=== PATIENT | male | born 1955 | race African-American/Black ===

== ENCOUNTER 2020-08-07 07:10 | Day surgery (SDC) | payer MEDICARE, OTHER ==
[~2020-08-07] VITALS: Ht 182.9 cm; Wt 90.7 kg
[2020-08-07 08:20] LABS: ANION GAP 13.3 mmol/L (8-16); CALCIUM 9.3 mg/dL (8.5-10.1); CARBON DIOXIDE 29.3 mmol/L (21.0-32.0); CREATININE - SERUM 10.3 mg/dL (0.6-1.3); POTASSIUM - SERUM 4.6 mmol/L (3.5-5.1)
[2020-08-07] MEDS ORDERED: TOPROL XL25 MG PO (08:52)
[2020-08-07 08:53] LABS: INR 1.33 (0.85-1.17); PROTIME 15.3 SECONDS (11.6-15.0)
[2020-08-07] MEDS ORDERED: GLUCOTROL 5 MG T5 MG PO (08:53)
[2020-08-07] MEDS ORDERED: LONITEN10 MG PO (08:54)
[2020-08-07] MEDS ORDERED: LIPITOR20 MG PO (08:54)
[2020-08-07] MEDS ORDERED: BAYER CHEWABLE81 MG PO (08:54)
[2020-08-07 09:03] LABS: BASOPHILS 0.9 % (0-2); EOSINOPHILS 11.3 % (0-7); HEMATOCRIT 37.6 % (42.0-54.0); HEMOGLOBIN 11.7 g/dL (13.5-17.5); IMMATURE GRANULOCYTES 0.2 % (0-5); LYMPHOCYTE ABS# 1.49 10x3/uL (1.32-3.57); LYMPHOCYTES 28.2 % (15-50); MCH 28.5 pg (26.0-34.0); MCHC 31.1 g/dL (31.0-37.0); MCV 91.7 fL (80.0-100.0); MEAN PLATELET VOLUME 9.8 fL (7.4-10.4); MONOCYTES 8.3 % (2-11); NEUTROPHILS 51.1 % (40-80); PLATELET COUNT 175 10x3/uL (130-400); RDW 15.7 % (11.5-14.5); WBC 5.3 10x3/uL (4.8-10.8)
[2020-08-07 09:42] VITALS: BP 119/59; Ht 182.9 cm; Wt 90.7 kg
[2020-08-07] MEDS ORDERED: HYDROCODON-ACE1 EAC7 PO (15:00)
--- NOTE | 2020-08-07 15:45 | NUR ---
3397 PT'S FRIEND NOTIFIED OF PT. RETURNING TO ROOM AND APPROXIMATE DC TIME.
--- NOTE | 2020-08-07 16:23 | NUR ---
1623 O2 DC'D. 94% SAT ON ROOM AIR.
--- NOTE | 2020-08-07 16:35 | NUR ---
1625 O2 CONTINUES TO REMAIN AT 94% SAT ON ROOM AIR, SAT PT UP ON SIDE OF BED, DENIES PROBLEMS, IV DC'D WITH CATH INTACT.
--- NOTE | 2020-08-07 16:49 | NUR ---
1645 PT. SLOW WITH DRESSING, STATES JUST FEELS TIRED. LAYING BACK DOWN.
--- NOTE | 2020-08-10 21:37 | OP ---
PATIENT NAME: MAXIMILIANO GATICA MEDICAL RECORD: [id number] :54 LOCATION:[facility] ADMISSION DATE: SURGEON: KAI SANCHEZ MD DATE OF OPERATION: 08/07/2020 REFERRING PHYSICIAN: Dr. Jon Meraz of [place]. 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 OPERATION PERFORMED: Fistulogram and balloon angioplasty of in-stent stenosis in the cephalic arch with an 8-mm diameter angioplasty balloon. Also, balloon angioplasty of right subclavian vein and right brachiocephalic vein stenoses with a 12-mm Bard Conquest high pressure angioplasty balloon. Also, then, the patient had an open segmental resection of the section of cephalic vein between the arterial anastomosis and the upper extent of the antecubital space that resected fully the pseudoaneurysm and replacement with a 6 mm diameter Propaten Intering 6 mm standard wall PTFE graft. SURGEON: Kai Sanchez MD ANESTHESIA: General endotracheal per CHAR FILTER OPERATOR. PREOPERATIVE NOTE: Mr. Maximiliano Gatica is a 65-year-old -[place] male from [facility], who is on chronic hemodialysis and dialyzes in [place] at the [facility] [place]. His c.o.d. biller is Dr. Jon Meraz of [place]. Dr. Meraz has referred Mr. Gatica to me for consideration for new dialysis access possibly including a HeRO dialysis graft. The patient has a history of prior cephalic arch stenosis and stenting and sometime in the recent future has developed a symptomatic enlarging aneurysm in the right antecubital space. He was brought to the operating room at this time to perform a fistulogram and interventions as possible, hopefully with repair of the aneurysmal segment of fistula. DESCRIPTION OF PROCEDURE: Under general anesthesia, the patient was placed in supine position, prepped and draped in a sterile manner. A fistulogram was then performed using a micropuncture needle and catheter inserted into the proximal third of the cephalic vein in the arm. Contrast injection with digital subtraction demonstrated a severe approximately 80% recurrent in-stent long stenosis in the cephalic arch and approximately 60% stenosis of the proximal right subclavian vein and an approximate 80% stenosis of the proximal right innominate or brachiocephalic vein with backfilling of collateral veins and backfilling of the internal jugular vein. 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 I placed a 6-Pakistani introducer sheath and advanced a guidewire. An angled glide catheter and was able to cross the areas of stenosis in the stent and in the proximal subclavian vein and also with a OPERATIVE REPORT [id number] MAXIMILIANO GATICA little more difficulty cross the stenosis into the superior vena cava. The guidewire and subsequently catheter were parked in the left brachiocephalic vein and contrast injected with digital subtraction imaging. This revealed that there was no stenosis of the superior vena cava or the left brachiocephalic vein. There was a severe stenosis of the right brachiocephalic vein just above the confluence and also again seen was stenosis of the subclavian vein. I did a wire exchange and placed an Amplatz wire in the inferior vena cava and then performed balloon angioplasty of these 3 areas of stenosis, first using an 8-mm angioplasty balloon with prolonged inflation and after which contrast injection revealed a very satisfactory result in the stent in the cephalic arch, but there was very little response or total recoil of the venous stenoses. These venous stenoses were then subsequently dilated again with a 12 mm diameter Conquest high pressure balloon, inflated to 16 atmospheres and held fully inflated for 60 seconds. Subsequently, repeated angiography revealed free flow of contrast into the superior vena cava and no residual significant stenosis in the right brachiocephalic or right subclavian veins. I did note that the stent in the right cephalic arch protrudes into the middle of the subclavian vein. There was flow and some backfilling into the axillary vein, but there was really not good visualization most of the axillary vein. I then made a long S-shaped incision over the fistula and the pseudoaneurysm in the antecubital space and dissected it free of surrounding structures. I obtained proximal and distal control of the brachial artery above and below the anastomosis and controlled it with Silastic loops and when needed. Atraumatic vascular clamps. The fistula itself was dissected from the surrounding tissues and also controlled with Silastic loops. The patient's aneurysm was dissected from the surrounding tissues and was about 3 cm in diameter and palpably it contained as well as we had seen on ultrasound, a large amount of thrombus. The patient was heparinized with 5000 units of heparin and the fistula subsequently clamped proximal and distal to the pseudoaneurysm and the pseudo aneurysmal segment was then resected, it was sent to pathology. The ends of the remaining fistula were bevelled and I placed an interposition graft using 6-mm diameter standard wall Propaten PTFE placing an Intering prosthesis to help avoid kinking in this location in the antecubital area. The anastomoses at both ends were done end-to-end and were done with continuous running 6-0 Prolene and were sealed with BioGlue. The suture lines were hemostatic upon completion and release of the occluding clamps and loops and there was excellent Doppler pulsatile flow in the brachial artery distal to the brachial artery to fistula anastomosis and also in the radial artery at the wrist. There was good continuous hyperemic type flow in the proximal brachial artery and of course in the fistula itself. The patient's heparin was reversed with 50 mg of protamine, but continued to ooze and bleed from a subcutaneous veins throughout the procedure. The wound was irrigated with saline and infiltrated with 0.25% Marcaine. I did not use a drain, but closed the wound with interrupted inverted 3-0 Vicryl and then a running intracuticular 4-0 Stratafix and further closed and sealed it with Dermabond glue, Maxorb, Tegaderm, Cavilon skin prep. I then placed a pressure dressing over this area using 4 x 4 padding, Kerlix 4-inch roll and 4-inch Coban elastic adhesive tape. This dressing I applied myself and I thought was not overly tight. The patient's bleeding appeared to be well controlled at that point. The patient was then awakened and in stable condition taken to the recovery room. The patient has several problems or constellation of problems with several different potential solutions. At this point in time, I think no further OPERATIVE REPORT [id number] MAXIMILIANO GATICA surgery is indicated, so long as his access remains patent and functional. I did make no attempt to resect the 2 large cannulation aneurysms in the mid humeral upper arm and I think he can continue to dialyze with these present, so long as his care was taken not to cannulate directly over the center of these aneurysms where the skin is very thin. In-stent cephalic arch recurrent stenosis will undoubtedly come back and if it is allowed to progress, will cause failure of this access that may possibly be avoided or treated by a transposition of the proximal cephalic vein down onto the basilic or axillary vein if indeed the central vein stenoses are not causing persistent problems with venous hypertension. I recommend that the patient have a followup fistulogram done at [facility] in 6 to 8 weeks and at that time, dilatation of stenoses as needed. I would recommend avoiding placing any further stents in the cephalic vein segment, which would potentially be used in a transposition operation. Certainly, I would redilate any recurring in-stent stenoses in order to keep the fistula working until a transposition could be done. I also would like at that time at [facility] for him to have an ultrasound-guided right axillary vein or basilic vein cannulation and a venogram performed there to determine if there are any areas of stenosis in the proximal basilic vein or axillary vein or subclavian, which were not appreciated on today's studies. If the patient needs further intervention for the brachiocephalic or subclavian vein stenoses, I would recommend referral to Dr. Magaña or Kate at [facility] for stenting of the central vein stenosis. I believe if that were successful it would then make it feasible to go ahead with transposition of the cephalic vein on to the axillary vein and avoid a need for HeRO graft at this point. I will send a copy of this note to tK and to the [facility] dialysis unit and also to [facility] here in [place]. It should be reviewed by the interventional c.o.d. biller at that time Mr. Gatica returns for his followup fistulogram. At least today, the patient I do not think requires a followup office visit, but if and when he is having more problems in the future, of course, we will want to see him back and we will want to see him before so that I could schedule him for a transposition operation. If a stent is placed in the right innominate vein, it needs to be 14 mm or greater in diameter to allow for potential insertion of a HeRO venous outflow device and if at all possible, avoid jailing the internal jugular vein confluence with the subclavian. Blood loss during the operation today was on the order of 100-150 cc and it was unreplaced, but the patient was given 2 units of fresh frozen plasma intraoperatively and 20 mcg of DDAVP. All sponges, instruments and needles were accounted for. No drain was used and the surgical specimen consisted of the resected fistula segment was pseudoaneurysm. The patient will be allowed to go home today and go to dialysis tomorrow. Obviously, his pressure dressing will need to be removed tomorrow and hopefully, he will not need to have any further pressure dressing applied. He will need to have a return appointment to my office for followup on the fistula and the interposition graft and I will make that appointment for him in my office next week. He will continue all of the same medications, diet, routine dialysis schedule. TRANSINT:[id number] Voice Confirmation ID: [id number] DOCUMENT ID: [id number] cc: Irina ARTHUR and Interventional Radiologist Dr. Jon Meraz OPERATIVE REPORT [id number] [facility] Pierce MD at 2137 CC: [id number] DICTATION DATE: 08/08/20 1146 HEALTH SYSTEMS ANALYST: 08/08/202221 [facility] 08/07/20 [facility] [address] [place] [address]
== END 2020-08-07 17:14 | disposition home or self-care (01) ==
LOC: D.OPS 07:10
PROVIDERS: ATTEND Surgery
DX: N18.6 End stage renal disease (principal); Z99.2 Dependence on renal dialysis; T82.510A Breakdown (mechanical) of surgically created arteriovenous fistula, initial encounter; T82.858A Stenosis of other vascular prosthetic devices, implants and grafts, initial encounter; T82.848A Pain due to vascular prosthetic devices, implants and grafts, initial encounter

== ENCOUNTER 2020-09-11 06:02 | Observation (INO) | payer MEDICARE, OTHER ==
[~2020-09-11] VITALS: Ht 182.9 cm; Wt 83.0 kg
[~2020-09-11 06:02] MED LIST: BAYER CHEWABLE81 MG PO; GLUCOTROL 5 MG T5 MG PO; HYDROCODON-ACE1 EAC7 PO; LIPITOR20 MG PO; LONITEN10 MG PO; TOPROL XL25 MG PO
[2020-09-11 06:32] LABS: INR 1.27 (0.85-1.17); PROTIME 14.7 SECONDS (11.6-15.0)
[2020-09-11 06:34] LABS: ANION GAP 13.5 mmol/L (8-16); CALCIUM 9.2 mg/dL (8.5-10.1); CARBON DIOXIDE 28.6 mmol/L (21.0-32.0); CREATININE - SERUM 8.8 mg/dL (0.6-1.3); POTASSIUM - SERUM 4.1 mmol/L (3.5-5.1)
[2020-09-11 06:41] LABS: BASOPHILS 1.1 % (0-2); HEMATOCRIT 35.2 % (42.0-54.0); HEMOGLOBIN 10.9 g/dL (13.5-17.5); IMMATURE GRANULOCYTES 0.2 % (0-5); LYMPHOCYTE ABS# 1.67 10x3/uL (1.32-3.57); LYMPHOCYTES 30.8 % (15-50); MCH 28.2 pg (26.0-34.0); MEAN PLATELET VOLUME 9.4 fL (7.4-10.4); MONOCYTES 12.7 % (2-11); NEUTROPHIL ABS# 2.35 10x3/uL (1.78-5.38); NEUTROPHILS 43.2 % (40-80); PLATELET COUNT 177 10x3/uL (130-400); RBC 3.87 10x6/uL (4.20-6.10); RDW 15.8 % (11.5-14.5); WBC 5.4 10x3/uL (4.8-10.8)
--- NOTE | 2020-09-11 08:13 | NUR ---
0807 EKG SHOWS AFIB. PT STATES HE HAD SOMETHING THAT WASN'T WORKING RIGHT WITH HIS HEART ON 08/07/2020 HOSPITAL VISIT. 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 DR. ARCINIEGA NOTIFIED OF EKG SHOWING AFIB WITH RATE OF 88. STATES SURGERY CAN BE DONE WITH THAT RATE. DR. SANCHEZ CALLED & INFORMED OF AFIB/RATE [address] ARCINIEGA SAID SURGERY COULD BE DONE. DR. SANCHEZ STATES HE WANTS TO CONTINUE WITH TODAY'S SURGERY. PT STATES HE WANTS TO HAVE THE PROCEDURE DONE. Alysia JOHNSON R.N.
[2020-09-11 09:04] VITALS: BP 116/61; BMI 24.8
[2020-09-11 14:00] VITALS: BP 126/62
--- NOTE | 2020-09-11 14:00 | NUR ---
received pt to 2133 from recovery room, pt alert and oriented, denies pain at this time, dressing noted to right arm with umer drain in place, 2lnc, piv to left hand 20g, flushes with ease, no needs voiced at this time, call light in reach, will monitor
--- NOTE | 2020-09-11 14:20 | NUR ---
spoke with luma gresham about renal consult
[2020-09-11 14:46] LABS: BASOPHILS 0.2 % (0-2); HEMATOCRIT 31.6 % (42.0-54.0); HEMOGLOBIN 9.7 g/dL (13.5-17.5); IMMATURE GRANULOCYTES 0.2 % (0-5); LYMPHOCYTE ABS# 0.93 10x3/uL (1.32-3.57); LYMPHOCYTES 17.4 % (15-50); MCHC 30.7 g/dL (31.0-37.0); MCV 91.1 fL (80.0-100.0); MEAN PLATELET VOLUME 9.5 fL (7.4-10.4); MONOCYTES 13.3 % (2-11); NEUTROPHIL ABS# 3.53 10x3/uL (1.78-5.38); NEUTROPHILS 65.9 % (40-80); PLATELET COUNT 142 10x3/uL (130-400); RBC 3.47 10x6/uL (4.20-6.10); RDW 15.6 % (11.5-14.5); WBC 5.4 10x3/uL (4.8-10.8)
[2020-09-11 14:57] VITALS: BP 126/62; BMI 24.9
--- NOTE | 2020-09-11 18:50 | NUR ---
REPORT RECEIVED PT LYING IN BED APPEARS ASLEEP NO DISTRESS NOTED. WILL CONTIUE TO MONITOR
--- NOTE | 2020-09-11 19:05 | NUR ---
spoke to pt catia Gatica who called to check on pt, pt ok'd nurse speaking to niece. pt catia phone number [phone] if anyone needs to contact pt family
[2020-09-11 20:00] VITALS: BP 117/59
[2020-09-12] VITALS: BP 116/65
[2020-09-12 04:00] VITALS: BP 105/53
--- NOTE | 2020-09-12 05:41 | NUR ---
umer drain emptied 10 cc sangiounous drainage, radial pulse palpated, dressing cdi RUE, sling in place
[2020-09-12 08:08] VITALS: BP 124/67
--- NOTE | 2020-09-12 10:07 | OP ---
PATIENT NAME: NICOLE LOCKE MEDICAL RECORD: [id number] :54 LOCATION:D. D.2134 ADMISSION DATE:09/11/20 SURGEON: KAI SANCHEZ MD DATE OF OPERATION: 09/11/2020 REFERRING PHYSICIAN: Dr. Jon Meraz of [place]. 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 A couple of months ago, I operated him and replaced the aneurysmal segment of the fistula in the antecubital space, which was painful and bothering him, replaced that with a PTFE graft, but I did not bypass or treat the entire aneurysmal fistula as I wanted to see the results of additional studies. The patient was returned to the operating room today with plans to implant a HeRO graft on the right, taking origin from the brachial artery actually from the graft, which I implanted recently and I will insert the HeRO outflow device through the right internal jugular vein. DESCRIPTION OF OPERATION: With the patient in supine position, prepped, and draped in a sterile manner, the right internal jugular vein was identified with a duplex ultrasound, the vein was fully compressible and of normal caliber. I made a small incision at the base of the neck there over the vein and using micropuncture technique and continuous ultrasound imaging, I inserted a needle and then an 0.018 wire. Under fluoroscopy, a catheter guidewire exchange was performed and a Glidewire inserted and advanced into the superior vena cava and right atrium. A 7-Mosotho introducer was then inserted and then additionally an angled glide catheter was passed over the Glidewire and I was able to manipulate this combination of catheter and wire through the right atrium and into the inferior vena cava. I then inserted an Amplatz wire through the Oxford catheter and parked the Amplatz in the iliac vein. I then injected contrast through the 7-Mosotho introducer and demonstrated an approximate 70% stenosis of the right brachiocephalic vein. This is a recurrent stenosis. I inserted a 9 mm diameter x 40 cm angioplasty balloon and dilated the stenosis. Subsequent contrast injections revealed no evidence of extravasation and about a 20% persistent stenosis and I believe the lesion is quite elastic. I then dilated the tract over the wire to the central veins and inserted the HeRO venous access device over 9 mm balloon and Amplatz wire at the end of the outflow device in the right atrium and then removed the hardware. The outflow tract was aspirated and flushed with heparinized saline and clamped and capped. All of this had been done under fluoroscopy. I then reopened the incision into and just above the antecubital space and exposed the PTFE graft that I had placed last time and clamped it distally towards the arterial anastomosis and ligated it proximally towards the aneurysmal fistula then transected it and beveled it and took an Acuseal early access graft and bevelled one end and then the anastomosis was performed between the Acuseal graft and the Propaten PTFE graft end-to-end with running 6-0 Prolene. When I was completed, the suture line was sealed with BioGlue and the graft and artery then again flushed with heparinized saline. A counter incision was made at the mid humeral level posteriorly and an incision was made over the deltopectoral groove. I placed the Acuseal graft in a tunnel, which passed rather widely around the aneurysmal fistula and then came back to the OPERATIVE REPORT [id number] NICOLE LOCKE deltopectoral groove. It was again flushed with heparinized saline and then pressurized and there was an excellent pulse throughout before it was once again clamped. The graft was shortened and dilated and then attached to a HeRO connector. The outflow device was pulled through a subcutaneous tunnel from the cervical incision to the deltopectoral groove incision. It was shortened and also connected to the connector, and when that was done, clamps were removed and excellent flow began immediately in the new HeRO, flow between the right brachial artery and the right atrium. Repeat fluoroscopy revealed very satisfactory positioning without any complication seen. The wounds were then irrigated with saline and closed with interrupted inverted 3-0 Vicryl and running intracuticular 4-0 Stratafix and Dermabond glue. I then made an incision over the aneurysmal fistula and excised as 2 ellipses of skin over the larger aneurysmal areas and dissected skin flaps and was able to fully mobilize the old fistula distally. I removed the end of the graft with the LigaSure and mobilized this all the way up to near the axilla where it was ligated with a 2-0 Prolene. The fistula was removed and it was sent to pathology for confirmation. The wound was irrigated with saline and then infiltrated and irrigated with 1% lidocaine with epinephrine. The wound was closed over a 7 mm flat Arun drain closing it with interrupted inverted 3-0 Vicryl in a running intracuticular 4-0 Stratafix. The drain was sutured to the skin with 3-0 Vicryl and attached to suction. The incision was sealed with Dermabond glue and all the incisions were then dressed with Maxorb, AG, Tegaderm, Cavilon skin prep and additionally a 4 x 4 and Kerlix gauze roll and Coban pressure dressing was placed on the arm and the drain attached to suction. At this point, the patient was awakened from his anesthetic and taken to the recovery room. Blood loss during the operation, I estimated at 250, little less perhaps, none was replaced. Sponges, instruments, and needles were accounted for. One drain was used as I described and the surgical specimen consisted of the excised aneurysmal AV fistula. PLAN: The patient is to remain in the hospital overnight tonight. He will be seen and followed by nephrology. He will be scheduled for dialysis tomorrow. We will instruct the dialysis nurses to be sure to follow Acuseal protocol, which also will need to be followed for the next 2 weeks at his home dialysis unit in [place]. Basically, the graft is to be accessed with nothing larger than a 17-gauge needle. The nurse is to wear a mask as well as sterile gloves when accessing the graft, flow should not exceed 450 cc per minute. If the patient is comfortable, and after he is dialyzed successfully tomorrow and there is no reason to keep him longer, he may be able to go home and continue his dialysis scheduled in [place] with his same medications, diet, etc. TRANSINT:[id number] Voice Confirmation ID: [id number] DOCUMENT ID: [id number] cc: Dr. Jon Meraz OPERATIVE REPORT [id number] NICOLE LOCKE JAMES MD at 1007 CC: [id number] DICTATION DATE: 09/11/20 1519 ORNAMENTAL IRON ERECTOR: 09/11/20 2318 ADM IN [place] [id number] [place] [address]
--- NOTE | 2020-09-12 13:07 | NUR ---
PATIENT LYING SEMI FOWLERS AAOX4, RESP EVEN AND NON LABORED, NO S/S OF DISTRESS, MEDICATIONS ADMINISTERED WITH INFORMATION RESOURCES DIRECTOR, NO FURTHER NEEDS AT THIS TIME, CLIR, BLP
[2020-09-12 13:30] VITALS: Ht 182.9 cm; Wt 83.0 kg
--- NOTE | 2020-09-12 20:39 | NUR ---
DIALYSIS TREATMENT TODAY BEFORE DISCHARGE. 1 LITER REMOVED VIA NEW GRAFT. TOLERATED WELL. REPORT GIVEN TO HILARIO ANGUIANO RN.
== END 2020-09-12 14:59 | disposition home or self-care (01) ==
LOC: D.M2 06:02 → D.OPS 06:02 → OBSVTIME 14:03 → D.M2 14:03 → D.OPS 14:04 → D.M2 15:09 → D.OPS 15:09 → D.M2 09-12 14:59
PROVIDERS: ADMIT Surgery; ATTEND Surgery
DX: T82.858A Stenosis of other vascular prosthetic devices, implants and grafts, initial encounter (principal); N18.6 End stage renal disease; E11.22 Type 2 diabetes mellitus with diabetic chronic kidney disease; I12.0 Hypertensive chronic kidney disease with stage 5 chronic kidney disease or end stage renal disease; Z99.2 Dependence on renal dialysis

== ENCOUNTER 2020-11-27 07:52 | Observation (INO) | payer MEDICARE, OTHER ==
[~2020-11-27] VITALS: Ht 182.9 cm; Wt 86.2 kg
[2020-11-27 08:26] LABS: BASOPHILS 1.5 % (0-2); HEMATOCRIT 30.7 % (42.0-54.0); HEMOGLOBIN 9.7 g/dL (13.5-17.5); LYMPHOCYTES 15.7 % (15-50); MCHC 31.6 g/dL (31.0-37.0); MCV 88.4 fL (80.0-100.0); MEAN PLATELET VOLUME 7.9 fL (7.4-10.4); MONOCYTES 9.3 % (2-11); NEUTROPHILS 66.5 % (40-80); PLATELET COUNT 169 10x3/uL (130-400); RBC 3.47 10x6/uL (4.20-6.10); RDW 16.5 % (11.5-14.5); WBC 6.3 10x3/uL (4.8-10.8)
[2020-11-27 08:41] LABS: INR 1.58 (0.85-1.17); PROTIME 17.5 SECONDS (11.6-15.0)
[2020-11-27 08:43] LABS: ANION GAP 21.6 mmol/L (8-16); CALCIUM 9.4 mg/dL (8.5-10.1); CARBON DIOXIDE 22.5 mmol/L (21.0-32.0)
[2020-11-27 08:49] LABS: CREATININE - SERUM 20.7 mg/dL (0.6-1.3)
[2020-11-27 08:50] LABS: POTASSIUM - SERUM 6.1 mmol/L (3.5-5.1)
[2020-11-27] MEDS ORDERED: ELIQUIS2.5 MG PO (10:01)
[2020-11-27 10:24] VITALS: BP 134/64; BMI 27.2
--- NOTE | 2020-11-27 10:46 | NUR ---
1015 VERBAL REPORT OF PT:17.5 & INR:1.58 TO . NO ORDERS RECEIVED. Alysia JOHNSNO R.N.
--- NOTE | 2020-11-27 10:50 | NUR ---
1030 STATES HAS HAD 2 COVID VACCINATIONS IN EITHER JULY OR AUGUST. Alysia JOHNSON R.N.
--- NOTE | 2020-11-27 16:04 | NUR ---
1510 - OXYGEN DOWN TO 2 LITERS PER MINUTE WITH SAT AT 99%.
--- NOTE | 2020-11-27 16:05 | NUR ---
1893 - CALL PLACED TO DR. SANCHEZ. NEW ORDERS RECEIVED FOR STAT BMP AND TO CONSULT NEPHROLOGY ABOUT DIALYSIS ISSUE.
[2020-11-27 16:08] LABS: ANION GAP 22.2 mmol/L (8-16); CALCIUM 8.6 mg/dL (8.5-10.1); CARBON DIOXIDE 20.8 mmol/L (21.0-32.0); CREATININE - SERUM 19.8 mg/dL (0.6-1.3)
--- NOTE | 2020-11-27 16:55 | NUR ---
6980 - RECEIVED CALL BACK FROM KIMANI CARLOS APRN, NEPHROLOGY. ORDERS RECEIVED TO ADMIT PATIENT FOR 23 HOUR OBSERVATION TO GET DIALYSIS DONE PRIOR TO PATIENT GOING BACK TO [place].
--- NOTE | 2020-11-27 17:01 | NUR ---
0838 - DR. SANCHEZ NOTIFIED OF NEPHROLOGY'S RECOMMENDATION TO ADMIT THE PATIENT FOR OVERNIGHT OBSERVATION TO GET DIALYSIS DONE.
--- NOTE | 2020-11-27 17:21 | NUR ---
1720 - PATIENT UP TO BATHROOM PER REQUEST TO TRY TO HAVE A BM. PRIOR TO GETTING HIM UP, CONVERTED IV TO SALINE LOCK.
--- NOTE | 2020-11-27 17:38 | NUR ---
ARRIVE TO ROOM VIA STRETCHER FROM OR. ALERT AND ORIENTED X4. AMBULATES TO BED. VITALS STABLE. CONTINUE ADMISSION PROCESS AND SAFETY PRECAUTIONS.
--- NOTE | 2020-11-27 17:48 | NUR ---
1740 - PATIENT TRANSFERRED TO [facility] VIA WHEELCHAIR WITH ALL PERSONAL BELONGINGS.
[2020-11-27 17:58] VITALS: BP 139/84; BMI 25.8
[2020-11-27 21:21] VITALS: BP 139/85
[2020-11-28 00:27] VITALS: BP 147/99
[2020-11-28 06:16] VITALS: BP 150/84
--- NOTE | 2020-11-28 07:00 | NUR ---
PT SITTING UP ON SIDE OF BED. RESP EVEN AND UNLABORED. AAO X4. DENIES NEEDS AT THIS TIME. CLIR. BED IN LOWEST POSITION
[2020-11-28 09:00] VITALS: BP 166/85
--- NOTE | 2020-11-28 09:07 | NUR ---
PT LEFT UNIT FOR DIALYSIS ACCOMPANIED BY HOSPITAL STAFF
[2020-11-28 12:00] VITALS: BP 134/68
--- NOTE | 2020-11-28 12:22 | NUR ---
I have reviewed this patient and I concur with the Shift Assessment completed by the Licensed Practical Nurse today this shift.
[2020-11-28 13:59] VITALS: Ht 182.9 cm; Wt 86.2 kg
--- NOTE | 2020-11-28 15:31 | MORECARE ---
CASE MANAGEMENT DISCHARGE SUMMARY PATIENT: NICOLE LOCKE UNIT: [id number] ADM DATE: 11/27/20 AGE: 65 : 54 SEX: M ROOM/BED: D.2136 AUTHOR: KAMRAN,DOC PHYSICIAN: REFERRING PHYSICIAN: KAI SANCHEZ MD DATE OF SERVICE: 11/28/20 Case Management Discharge Planning Summary COMMENTS ENTERED DATE: 11/28/20 15:23 CT COMMENT TYPE: Discharge Planning REVIEWER: Kathe Abbott PT WAS OBS PT AND IS DISCHARGED AFTER DIALYSIS TODAY. PT STATES HE HAS NO ADDTIONAL NEEDS AND HAS A RIDE COMING TO PICK HIM UP. DCP REVIEW SUMMARY ANTICIPATED D/C DATE: 11/28/2020 EXPECTED LOS : 1 CASE STATUS: DCP Initiated INITIAL REVIEW: 11/27/2020 INITIAL REVIEWER: Kathe Abbott FINAL DISCHARGE DISPOSITION: 01 : Home or Self Care (Routine Discharge) FINAL REVIEWER: FINAL REVIEW DATE: DCP Focus Questions & Answers QUESTION: ANSWER : PATIENT: NICOLE LOCKE ENCOUNTER: [id number] MEDICAL RECORD#: [id number] ADMISSION DATE: 11/27/2020 DISCHARGE DATE: ATTENDING MD: KAI VIZCAINO : AGE: 65 MARITAL STATUS: S DC PLAN ID: [id number] FACILITY: [facility] PRINTED ON: 11/28/20 15:30 CT All edits/amendments must be made on the electronic document DICTATION DATE: 11/28/201529 CAR WORKER: DM 11/28/20 153 RPT#: [id number] DC DATE: STATUS: ADM IN [facility] [address] [place] [address] END OF REPORT
--- NOTE | 2020-11-28 19:08 | NUR ---
PT DISCHARGED HOME VIA TRANSPORTATION SERVICE. DISCHARGE INSTRUCTIONS PROVIDED VERBALLY AND WRITTEN. PT VERBALIZED UNDERSTANDING. IV DC. IV CATH TIP INTACT
--- NOTE | 2020-11-28 19:18 | MORECARE ---
CASE MANAGEMENT DISCHARGE SUMMARY PATIENT: NICOLE LOCKE UNIT: [id number] ADM DATE: 11/27/20 AGE: 65 : 53 SEX: M ROOM/BED: D.2136 AUTHOR: KAMRAN,DOC PHYSICIAN: REFERRING PHYSICIAN: KAI SANCHEZ MD DATE OF SERVICE: 11/28/20 Case Management Discharge Planning Summary COMMENTS ENTERED DATE: 11/28/20 15:23 CT COMMENT TYPE: Discharge Planning REVIEWER: Kathe Abbott PT WAS OBS PT AND IS DISCHARGED AFTER DIALYSIS TODAY. PT STATES HE HAS NO ADDTIONAL NEEDS AND HAS A RIDE COMING TO PICK HIM UP. DCP REVIEW SUMMARY ANTICIPATED D/C DATE: 11/28/2020 EXPECTED LOS : 1 CASE STATUS: DCP Initiated INITIAL REVIEW: 11/27/2020 INITIAL REVIEWER: Kathe Abbott FINAL DISCHARGE DISPOSITION: 01 : Home or Self Care (Routine Discharge) FINAL REVIEWER: FINAL REVIEW DATE: DCP [employer] Questions [employer] Answers QUESTION: ANSWER : PATIENT: NICOLE LOCKE ENCOUNTER: [id number] MEDICAL RECORD#: [id number] ADMISSION DATE: 11/27/2020 DISCHARGE DATE: 11/28/2020 ATTENDING MD: KAI VIZCAINO : AGE: 65 MARITAL STATUS: S DC PLAN ID: [id number] FACILITY: [facility] PRINTED ON: 11/28/20 19:17 CT All edits/amendments must be made on the electronic document DICTATION DATE: 11/28/201916 DRAFTER DETAIL: CHUCKY 11/28/201916 RPT#: [id number] DC DATE:11/28/20 STATUS: DIS IN [facility] [address] [place] [address] END OF REPORT
== END 2020-11-28 19:10 | disposition home or self-care (01) ==
LOC: D.OPS 07:52 → D.M2 17:50 → D.OPS 18:32 → OBSVTIME 18:33 → D.M2 18:33
PROVIDERS: ADMIT Surgery; ATTEND Surgery
DX: T82.868A Thrombosis due to vascular prosthetic devices, implants and grafts, initial encounter (principal); N18.6 End stage renal disease; Z99.2 Dependence on renal dialysis; E11.22 Type 2 diabetes mellitus with diabetic chronic kidney disease; Z79.84 Long term (current) use of oral hypoglycemic drugs; T82.858A Stenosis of other vascular prosthetic devices, implants and grafts, initial encounter; D63.1 Anemia in chronic kidney disease; E83.39 Other disorders of phosphorus metabolism; I12.0 Hypertensive chronic kidney disease with stage 5 chronic kidney disease or end stage renal disease